=== PATIENT | female | born 1945 | race Asian ===

== ENCOUNTER 2018-05-09 16:58 | Observation (INO) | payer MEDICARE, OTHER ==
[2018-05-09] MEDS ORDERED: diphenhydrAMINE 50 MG/ML 1 ML VIAL IVP STA (17:33)
[2018-05-09] MEDS ORDERED: methylPREDNISolone SOD SUCCI 125 MG/2 ML VIAL IV STA (17:33)
[2018-05-09] MEDS ORDERED: FAMOTIDINE 20 MG/2 ML VIAL IV STA (17:33)
[2018-05-09] MEDS ORDERED: IPRATROPIUM-ALBUTEROL 3 ML NEB INHALATION STA ×3 (17:35→17:55)
--- NOTE | 2018-05-09 17:47 | ED ---
General Adult HPI - General Source: patient, RN notes reviewed Mode of arrival: ambulatory Limitations: no limitations <Rashawn Davey - Last Filed: 05/09/18 19:59> <Heber Jeong - Last Filed: 05/09/18 20:05> - General Chief complaint: Allergic Reaction Stated complaint: hives/SOB Time Seen by Provider: 05/09/18 17:20 - History of Present Illness Initial comments: 73-year-old female with a past medical history significant for orthopedic surgery presents to the emergency department for a chief complaint of possible ALLERGIC reaction. Patient states she has had a rash on her entire body for the past week. She states this is pruritic. Patient denies any fevers or chills. Patient is also short of breath. She states this started late last night and has worsened throughout the day today. Patient states she thinks this is related to the rash and may be having an ALLERGIC reaction. Patient does admit to a smoking history but states she quit 5 years ago. She denies history of COPD. She does admit that she is having a productive cough for the past several days. She denies any significant chest pain. Patient has no other complaints at this time including chest pain, abdominal pain, nausea or vomiting, headache, or visual changes. (Rashawn Davey) - Related Data Home Medications Medication Instructions Recorded Confirmed No Known Home Medications 05/09/18 05/09/18 Allergies Allergy/AdvReac Type Severity Reaction Status Date / Time No Known Allergies Allergy Verified 05/09/18 18:20 Review of Systems ROS Other: All systems not noted in ROS Statement are negative. <Rashawn Davey - Last Filed: 05/09/18 19:59> ROS Other: All systems not noted in ROS Statement are negative. <Heber Jeong - Last Filed: 05/09/18 20:05> ROS Statement: Those systems with pertinent positive or pertinent negative responses have been documented in the HPI. Past Medical History Past Medical History: No Reported History History of Any Multi-Drug Resistant Organisms: None Reported Past Surgical History: Orthopedic Surgery Past Psychological History: No Psychological Hx Reported Smoking Status: Never smoker Past Alcohol Use History: None Reported Past Drug Use History: None Reported <Rashawn Davey - Last Filed: 05/09/18 19:59> General Exam Limitations: no limitations General appearance: alert, in no apparent distress Head exam: Present: atraumatic, normocephalic, normal inspection Eye exam: Present: normal appearance, PERRL, EOMI. Absent: scleral icterus, conjunctival injection, periorbital swelling ENT exam: Present: normal exam, normal oropharynx, mucous membranes moist, TM's normal bilaterally, normal external ear exam Neck exam: Present: normal inspection, full ROM. Absent: tenderness, me ningismus, lymphadenopathy Respiratory exam: Present: wheezes (Significant wheezing noted in all lung álvarez), accessory muscle use (Patient has some some supraclavicular retractions noted). Absent: respiratory distress, rales, rhonchi, stridor Cardiovascular Exam: Present: regular rate, normal rhythm, normal heart sounds. Absent: systolic murmur, diastolic murmur, rubs, gallop, clicks GI/Abdominal exam: Present: soft, normal bowel sounds. Absent: distended, tenderness, guarding, rebound, rigid Neurological exam: Present: alert, oriented X3, CN II-XII intact Psychiatric exam: Present: normal affect, normal mood Skin exam: Present: rash (Patient has a generalized erythematous blanching rash noted with excoriations present) <Rashawn Davey - Last Filed: 05/09/18 19:59> Course <Heber Jeong - Last Filed: 05/09/18 20:05> Vital Signs 05/09/18 05/09/18 05/09/18 17:05 17:26 17:57 Temperature 99.3 F Pulse Rate 102 H 101 H Respiratory 16 24 Rate Blood Pressure 195/79 O2 Sat by Pulse 95 Oximetry 05/09/18 05/09/18 05/09/18 18:00 18:08 18:39 Temperature Pulse Rate 99 103 H Respiratory 32 H Rate Blood Pressure 200/105 188/117 O2 Sat by Pulse 99 Oximetry 05/09/18 05/09/18 19:00 19:15 Temperature Pulse Rate 92 92 Respiratory 30 H 30 H Rate Blood Pressure 174/100 184/96 O2 Sat by Pulse 96 96 Oximetry - Reevaluation(s) Reevaluation #1: 05/09/18 20:04 PA supervision: I proceeded [id number] evaluation the patient several occasions patient did present with complaints of a rash that was diffuse for about the last week family believes is secondary to a new couch that they have purchased. Patient came in with complaints of shortness of breath today she demonstrated diffuse wheezing and exertional dyspnea. After aggressive treatment patient still remained dyspneic with diffuse wheezing. Patient will be admitted. I did discuss case with Dr. Castillo. Patient will be admitted I do agree with the assessment and plan (Heber Jeong) EKG Findings - EKG Comments: EKG Findings:: Normal sinus rhythm, ventricular rate 98, TX interval 178, QRS duration 82, QTC 439, no evidence of ST elevation or depression <Rashawn Davey - Last Filed: 05/09/18 19:59> Medical Decision Making - Lab Data Result diagrams: 05/09/18 17:50 05/09/18 17:50 <Rashawn Davey - Last Filed: 05/09/18 19:59> - Lab Data Result diagrams: 05/09/18 17:50 05/09/18 17:50 <Heber Jeong - Last Filed: 05/09/18 20:05> - Medical Decision Making 73-year-old female presents for possible ALLERGIC reaction. Patient has had a rash for the past week and shortness of breath that developed last night. On presentation patient does have supraclavicular retractions noted as well is an erythematous macular rash. Patient given Solu-Medrol, Benadryl, Pepcid which did improve her rash however lung sounds are still very wheezy on exam. She also admits to a cough over the past several days. Patient given DuoNeb which did improve wheezing somewhat however respiratory rate still increased. CBC CMP unremarkable. Troponin negative. Chest x-ray does show evidence of pneumonitis. On reevaluation patient is still very wheezy. Given patient's smoking history as well as severity of SOB she will be admitted for further management. Patient will be given IV steroids and DuoNeb's. This case was discussed with Dr. Castillo.. (Rashawn Davey) - Lab Data Lab Results 05/09/18 05/09/18 05/09/18 Range/Units 17:50 17:50 17:50 WBC 6.7 (3.8-10.6) k/uL RBC 4.80 (3.80-5.40) m/uL Hgb 14.2 (11.4-16.0) gm/dL Hct 44.5 (34.0-46.0) % MCV 92.7 (80.0-100.0) fL MCH 29.5 (25.0-35.0) pg MCHC 31.9 (31.0-37.0) g/dL RDW 13.5 (11.5-15.5) % Plt Count 228 (150-450) k/uL Neutrophils % 70 % Lymphocytes % 13 % Monocytes % 11 % Eosinophils % 2 % Basophils % 1 % Neutrophils # 4.6 (1.3-7.7) k/uL Lymphocytes # 0.9 L (1.0-4.8) k/uL Monocytes # 0.7 (0-1.0) k/uL Eosinophils # 0.1 (0-0.7) k/uL Basophils # 0.0 (0-0.2) k/uL PT (9.0-12.0) sec INR (<1.2) APTT (22.0-30.0) sec Sodium 137 (137-145) mmol/L Potassium 4.4 (3.5-5.1) mmol/L Chloride 101 (98-107) mmol/L Carbon Dioxide 27 (22-30) mmol/L Anion Gap 9 mmol/L BUN 14 (7-17) mg/dL Creatinine 0.52 (0.52-1.04) mg/dL Est GFR (CKD-EPI)AfAm >90 (>60 ml/min/1.73 sqM) Est GFR (CKD-EPI)NonAf >90 (>60 ml/min/1.73 sqM) Glucose 125 H (74-99) mg/dL Plasma Lactic Acid Sergey (0.7-2.0) mmol/L Calcium 9.4 (8.4-10.2) mg/dL Magnesium 2.1 (1.6-2.3) mg/dL Total Bilirubin 0.6 (0.2-1.3) mg/dL AST 66 H (14-36) U/L ALT 83 H (9-52) U/L Alkaline Phosphatase 118 (38-126) U/L Troponin I (0.000-0.034) ng/mL NT-Pro-B Natriuret Pep 105 pg/mL Total Protein 7.2 (6.3-8.2) g/dL Albumin 4.2 (3.5-5.0) g/dL Influenza Type A RNA (Not Detectd) Influenza Type B (PCR) (Not Detectd) 05/09/18 05/09/18 05/09/18 Range/Units 17:50 17:50 17:50 WBC (3.8-10.6) k/uL RBC (3.80-5.40) m/uL Hgb (11.4-16.0) gm/dL Hct (34.0-46.0) % MCV (80.0-100.0) fL MCH (25.0-35.0) pg MCHC (31.0-37.0) g/dL RDW (11.5-15.5) % Plt Count (150-450) k/uL Neutrophils % % Lymphocytes % % Monocytes % % Eosinophils % % Basophils % % Neutrophils # (1.3-7.7) k/uL Lymphocytes # (1.0-4.8) k/uL Monocytes # (0-1.0) k/uL Eosinophils # (0-0.7) k/uL Basophils # (0-0.2) k/uL PT 9.3 (9.0-12.0) sec INR 0.8 (<1.2) APTT 25.2 (22.0-30.0) sec Sodium (137-145) mmol/L Potassium (3.5-5.1) mmol/L Chloride (98-107) mmol/L Carbon Dioxide (22-30) mmol/L Anion Gap mmol/L BUN (7-17) mg/dL Creatinine (0.52-1.04) mg/dL Est GFR (CKD-EPI)AfAm (>60 ml/min/1.73 sqM) Est GFR (CKD-EPI)NonAf (>60 ml/min/1.73 sqM) Glucose (74-99) mg/dL Plasma Lactic Acid Sergey 1.1 (0.7-2.0) mmol/L Calcium (8.4-10.2) mg/dL Magnesium (1.6-2.3) mg/dL Total Bilirubin (0.2-1.3) mg/dL AST (14-36) U/L ALT (9-52) U/L Alkaline Phosphatase (38-126) U/L Troponin I <0.012 (0.000-0.034) ng/mL NT-Pro-B Natriuret Pep pg/mL Total Protein (6.3-8.2) g/dL Albumin (3.5-5.0) g/dL Influenza Type A RNA (Not Detectd) Influenza Type B (PCR) (Not Detectd) 05/09/18 Range/Units 17:50 WBC (3.8-10.6) k/uL RBC (3.80-5.40) m/uL Hgb (11.4-16.0) gm/dL Hct (34.0-46.0) % MCV (80.0-100.0) fL MCH (25.0-35.0) pg MCHC (31.0-37.0) g/dL RDW (11.5-15.5) % Plt Count (150-450) k/uL Neutrophils % % Lymphocytes % % Monocytes % % Eosinophils % % Basophils % % Neutrophils # (1.3-7.7) k/uL Lymphocytes # (1.0-4.8) k/uL Monocytes # (0-1.0) k/uL Eosinophils # (0-0.7) k/uL Basophils # (0-0.2) k/uL PT (9.0-12.0) sec INR (<1.2) APTT (22.0-30.0) sec Sodium (137-145) mmol/L Potassium (3.5-5.1) mmol/L Chloride (98-107) mmol/L Carbon Dioxide (22-30) mmol/L Anion Gap mmol/L BUN (7-17) mg/dL Creatinine (0.52-1.04) mg/dL Est GFR (CKD-EPI)AfAm (>60 ml/min/1.73 sqM) Est GFR (CKD-EPI)NonAf (>60 ml/min/1.73 sqM) Glucose (74-99) mg/dL Plasma Lactic Acid Sergey (0.7-2.0) mmol/L Calcium (8.4-10.2) mg/dL Magnesium (1.6-2.3) mg/dL Total Bilirubin (0.2-1.3) mg/dL AST (14-36) U/L ALT (9-52) U/L Alkaline Phosphatase (38-126) U/L Troponin I (0.000-0.034) ng/mL NT-Pro-B Natriuret Pep pg/mL Total Protein (6.3-8.2) g/dL Albumin (3.5-5.0) g/dL Influenza Type A RNA Not Detected (Not Detectd) Influenza Type B (PCR) Not Detected (Not Detectd) Disposition Is patient prescribed a controlled substance at d/c from ED?: No Time of Disposition: 20:02 <Rashawn Davey - Last Filed: 05/09/18 19:59> <Heber Jeong - Last Filed: 05/09/18 20:05> Clinical Impression: Shortness of breath, Rash, Allergic reaction, Pneumonitis, Acute bronchospasm Disposition: ADMITTED IP TO THIS HOSP Condition: Fair Referrals: None,Stated [Primary Care Provider] - 1-2 days
[2018-05-09] MEDS ORDERED: ENALAPRILAT 1.25 MG/ML 1 ML VIAL IVP STA (18:10)
[2018-05-09 18:18] LABS: Basophils % (A) 1 %; Eosinophils # (A) 0.1 k/uL (0-0.7); Eosinophils % (A) 2 %; HCT 44.5 % (34.0-46.0); HGB 14.2 gm/dL (11.4-16.0); Lymphocytes # (A) 0.9 k/uL (1.0-4.8); Lymphocytes % (A) 13 %; MCH 29.5 pg (25.0-35.0); MCHC 31.9 g/dL (31.0-37.0); MCV 92.7 fL (80.0-100.0); Mean Platelet Volume 7.5; Monocytes # (A) 0.7 k/uL (0-1.0); Monocytes % (A) 11 %; Neutrophils # (A) 4.6 k/uL (1.3-7.7); Neutrophils % (A) 70 %; Platelet Count 228 k/uL (150-450); RDW 13.5 % (11.5-15.5); WBC 6.7 k/uL (3.8-10.6)
[2018-05-09 18:27] LABS: ALT 83 U/L (9-52); AST 66 U/L (14-36); Albumin 4.2 g/dL (3.5-5.0); Alkaline Phosphatase 118 U/L (38-126); Anion Gap 9 mmol/L; Blood Urea Nitrogen 14 mg/dL (7-17); Calcium 9.4 mg/dL (8.4-10.2); Carbon Dioxide 27 mmol/L (22-30); Chloride 101 mmol/L (98-107); Glucose 125 mg/dL (74-99); Magnesium 2.1 mg/dL (1.6-2.3); Potassium 4.4 mmol/L (3.5-5.1); Sodium 137 mmol/L (137-145); Total Bilirubin 0.6 mg/dL (0.2-1.3); Total Protein 7.2 g/dL (6.3-8.2)
[2018-05-09 18:35] LABS: INR 0.8 (<1.2); Partial Thromboplastin Time 25.2 sec (22.0-30.0); Prothrombin Time 9.3 sec (9.0-12.0)
--- NOTE | 2018-05-09 19:25 | XR ---
EXAMINATION: XR chest 2V DATE AND TIME: 05/09/2018 6:59 PM CLINICAL INDICATION: Pain. Dyspnea and eyes, possible allergic reaction TECHNIQUE: Departmental protocol COMPARISON: None FINDINGS: The lungs show multifocal ill-defined added opacities throughout the mid and lower lung zones, relati vely mild in degree but these opacities silhouette the pulmonary vasculature bilaterally. The pleural spaces are negative. The cardiac silhouette is moderately enlarged, and the thoracic aorta is tortuous. The skeletal structures and soft tissues are negative for acute findings. IMPRESSION: BILATERAL MULTIFOCAL PNEUMONITIS RADIOGRAPHIC PATTERN; FOLLOW-UP RADIOGRAPHY WILL FURTHER CHARACTERIZ E. MODERATE ENLARGEMENT OF THE CARDIAC SILHOUETTE.
[2018-05-09] MEDS ORDERED: traMADol 50 MG TAB PO PRN (19:55)
[2018-05-09] MEDS ORDERED: ONDANSETRON 4 MG/2 ML VIAL IVP PRN (19:55)
[2018-05-09] MEDS ORDERED: NALOXONE 0.4 MG/ML 1 ML VIAL IV PRN (19:55)
[2018-05-09] MEDS ORDERED: ACETAMINOPHEN TAB 325 MG TAB PO PRN (19:55)
[2018-05-09 21:58] VITALS: BMI 23.8
[2018-05-09] MEDS: SODIUM CHLORIDE 0.9% 1,000 ML IV SCH (22:17)
[2018-05-09] MEDS ORDERED: diphenhydrAMINE 50 MG/ML 1 ML VIAL IVP PRN (23:03)
--- NOTE | 2018-05-09 23:04 | P.HPIM ---
History of Present Illness H&P Date: 05/09/18 Chief Complaint: Rash and itchiness, cough and difficulty breathing 73-year-old female with a past medical history significant for orthopedic surgery presents to the emergency department for a chief complaint of possible ALLERGIC reaction. Patient states she has had a rash on her entire body for the past week, she reports it first began on her bilateral hands and forearm steadily progressing to her chest, She states it was initially very pruritic but has improved. Patient denies any fevers or chills. Patient is also short of breath. She states this started late last night and has worsened throughout the day today. She denies any throat swelling or feeling that her throat closing over, she denies any difficulty swallowing. Patient states she thinks this is related to the rash and may be having an ALLERGIC reaction. Patient does admit to a smoking history but states she quit 5 years ago. She denies history of COPD. She does admit that she is having a productive cough for the past several days. She denies any significant chest pain. Patient has no other complaints at this time including chest pain, abdominal pain, nausea or vomiting, headache, or visual changes. She denies any changes in her diet, detergent, perfumes or soaps. Review of Systems Pertinent positives per HPI all look versus and otherwise negative Past Medical History Past Medical History: No Reported History History of Any Multi-Drug Resistant Organisms: None Reported Past Surgical History: Orthopedic Surgery Past Psychological History: No Psychological Hx Reported Smoking Status: Never smoker Past Alcohol Use History: None Reported Past Drug Use History: None Reported - Past Family History Father Family Medical History: No Reported History Medications and Allergies Home Medications Medication Instructions Recorded Confirmed Type No Known Home Medications 05/09/18 05/09/18 History Allergies Allergy/AdvReac Type Severity Reaction Status Date / Time No Known Allergies Allergy Verified 05/09/18 18:20 Physical Exam Vitals: Vital Signs Temp Pulse Resp BP Pulse Ox 05/09/18 19:15 92 30 H 184/96 96 05/09/18 19:00 92 30 H 174/100 96 05/09/18 18:39 188/117 05/09/18 18:08 103 H 32 H 200/105 99 05/09/18 18:00 99 05/09/18 17:57 101 H 05/09/18 17:26 24 05/09/18 17:05 99.3 F 102 H 16 195/79 95 Intake and Output 05/09/18 05/09/18 05/09/18 06:59 14:59 22:59 Other: Weight 63.503 kg Constitutional: No acute distress, conversant, pleasant Eyes: Anicteric sclerae, moist conjunctiva, no lid-lag, PERRLA ENMT: NC/AT,Oropharynx clear, no erythema, exudates Neck:Supple, FROM, no masses, or JVD, No carotid bruits; No thyromegaly Lungs: Clear to auscultation, Clear to percussion, Normal respiratory effort, no accessory muscle use Cardiovascular: Heart regular in rate and rhythm, No murmurs, gallops, or rubs no peripheral edema Abdominal: Soft Nontender, nom distended, no guarding, no rebound or rigidity, Normoactive bowel sounds No hepatomegaly, No splenomegaly, No palpable mass No abdominal wall hernia noted Skin: Normal temperature, tone, texture, turgor, No induration No subcutaneous nodules, No rash, lesions, No ulcers Extremities:No digital cyanosis No clubbing, Pedal pulses intact and symmetrical Radial pulses intact and symmetrical Normal gait and station, No calf tenderness Psychiatric: Alert and oriented to person, place and time, Appropriate affect Intact judgement Neuro: Muscles Strength 5/5 in all 4 extremities, Sensation to light touch grossly present throughout, Cranial nerves II-XII grossly intact. No focal sensory deficits Results CBC & Chem 7: 05/09/18 17:50 05/09/18 17:50 Labs: Abnormal Lab Results - Last 24 Hours (Table) 05/09/18 05/09/18 Range/Units 17:50 17:50 Lymphocytes # 0.9 L (1.0-4.8) k/uL Glucose 125 H (74-99) mg/dL AST 66 H (14-36) U/L ALT 83 H (9-52) U/L Assessment and Plan (1) Acute bronchospasm Current Visit: Yes Status: Acute Code(s): J98.01 - ACUTE BRONCHOSPASM SNOMED Code(s): 13554006956010 (2) Allergic reaction Current Visit: Yes Status: Acute Code(s): T78.40XA - ALLERGY, UNSPECIFIED, INITIAL ENCOUNTER SNOMED Code(s): 304335716 (3) Pneumonitis Current Visit: Yes Status: Acute Code(s): J18.9 - PNEUMONIA, UNSPECIFIED ORGANISM SNOMED Code(s): 178157846 (4) Rash Current Visit: Yes Status: Acute Code(s): R21 - RASH AND OTHER NONSPECIFIC SKIN ERUPTION SNOMED Code(s): 636536625 (5) Shortness of breath Current Visit: Yes Status: Acute Code(s): R06.02 - SHORTNESS OF BREATH SNOMED Code(s): 304732532 (6) Elevated blood pressure reading Current Visit: Yes Status: Acute Code(s): R03.0 - ELEVATED BLOOD-PRESSURE READING, W/O DIAGNOSIS OF HTN SNOMED Code(s): 16731396 Plan: The patient is placed in observation anticipate a less than 2 midnight stay with a rash concern for ALLERGIC type hypersensitivity reaction to unknown precipitant with subsequent concern for ALLERGIC bronchospasm versus COPD exacerbation. The patient was started on systemic steroids With Solu-Medrol, along with Benadryl and Pepcid with supportive treatment DuoNeb bronchodilator breathing treatments. The patient is noted to have elevated blood pressures with no history of hypertension, appears anxious, we'll continue to monitor, currently not in respiratory distress but is tachypneic. We'll continue to [facility] clinical course CODE STATUS full code Discussed plan of care with : Patient and her
[2018-05-09] MEDS: LORazepam 0.5 MG TAB PO SCH (23:29)
[2018-05-09] MEDS: methylPREDNISolone SOD SUCCI 125 MG/2 ML VIAL IV SCH (23:29)
[2018-05-10] MEDS: IPRATROPIUM-ALBUTEROL 3 ML NEB INHALATION SCH ×4 (00:31→19:28)
[2018-05-10] MEDS: methylPREDNISolone SOD SUCCI 125 MG/2 ML VIAL IV SCH ×4 (05:35→23:33)
[2018-05-10] MEDS: FAMOTIDINE 20 MG/2 ML VIAL IV SCH ×2 (08:46→20:45)
[2018-05-10] MEDS: SODIUM CHLORIDE 0.9% 1,000 ML IV SCH ×2 (08:46→20:48)
--- NOTE | 2018-05-10 09:39 | P.CNPUL ---
History of Present Illness Consult date: 05/10/18 Reason for consult: dyspnea, cough Chief complaint: rash and shortness of breath History of present illness: This is a 73-year-old female who presented to the emergency department complaining of a rash and shortness of breath. She states this is been ongoing for about a week. The patient is currently denying any symptoms so the history is taken from the electronic medical record. Apparently the patient had a cough for the past several days. She has no history of asthma or COPD. She was complaining of a headache as well. She does not have any pets in her home. She states she is a former smoker but quit "a long time ago." She denies fevers and chills. She does not use any inhalers or nebulizers at home. She does not wear oxygen at home. Upon further questioning the patient does admit that she was short of breath at home with exertion. She does say that she just wants to go home today. On exam the patient is quite wheezy and this is discussed with her and her son. They are agreeable to further workup. Review of Systems All systems: negative Past Medical History Past Medical History: No Reported History History of Any Multi-Drug Resistant Organisms: None Reported Past Surgical History: Orthopedic Surgery Past Psychological History: No Psychological Hx Reported Smoking Status: Never smoker Past Alcohol Use History: None Reported Past Drug Use History: None Reported - Past Family History Father Family Medical History: No Reported History Medications and Allergies Home Medications Medication Instructions Recorded Confirmed Type No Known Home Medications 05/09/18 05/09/18 History Allergies Allergy/AdvReac Type Severity Reaction Status Date / Time No Known Allergies Allergy Verified 05/09/18 18:20 Physical Exam Osteopathic Statement: *. No significant issues noted on an osteopathic structural exam other than those noted in the History and Physical/Consult. Vitals: Vital Signs Temp Pulse Pulse Resp BP BP Pulse Ox 05/10/18 07:49 92 05/10/18 07:37 96 05/10/18 07:07 98 F 92 18 169/67 92 L 05/09/18 21:32 98.4 F 90 16 163/73 94 L 05/09/18 20:52 90 30 H 177/88 99 05/09/18 20:30 94 30 H 172/99 99 05/09/18 20:00 90 30 H 193/111 99 05/09/18 19:45 90 30 H 182/92 99 05/09/18 19:15 92 30 H 184/96 96 05/09/18 19:00 92 30 H 174/100 96 05/09/18 18:39 188/117 05/09/18 18:08 103 H 32 H 200/105 99 05/09/18 18:00 99 05/09/18 17:57 101 H 05/09/18 17:26 24 05/09/18 17:05 99.3 F 102 H 16 195/79 95 Intake and Output 05/09/18 05/10/18 05/10/18 22:59 06:59 14:59 Intake Total 75 Balance 75 Intake: Intake, IV Titration 75 Amount Sodium Chloride 0.9% 1, 75 000 ml @ 75 mls/hr IV . [id number] [facility] Rx#:[id number] Other: Voiding Method Toilet Toilet # Voids 1 2 Weight 63.503 kg Gen.: Patient is alert and oriented 3, no acute distress Cardiovascular: Regular rate and rhythm, S1/S2 Lungs: Diffuse bilateral expiratory wheezing Abdomen: Soft nontender nondistended positive bowel sounds Extremities: No edema Results - Laboratory Findings CBC and BMP: 05/09/18 17:50 05/09/18 17:50 PT/INR, D-dimer PT 9.3 sec (9.0-12.0) 05/09/18 17:50 INR 0.8 (<1.2) 05/09/18 17:50 Abnormal lab findings: Abnormal Labs 05/09/18 05/09/18 17:50 17:50 Lymphocytes # 0.9 L Glucose 125 H AST 66 H ALT 83 H - Diagnostic Findings Chest x-ray: report reviewed, image reviewed Assessment and Plan Assessment: Dyspnea on exertion Pneumonitis of unclear etiology Acute bronchospasm Remote history of tobacco abuse Hypertension Mild transaminitis of unclear etiology O2 to maintain saturation > or = 90% Pulmicort and Duonebs Solumedrol taper Singulair Monitor peak flows CT chest without contrast HP/IgE/allergy panel, PHYLLIS, [id number] Would discharge with Qvar, Ventolin, Singulair for now, Prednisone taper Outpatient PFT and pulmonary follow up Continued smoking cessation Patient denies exposures Thank you for this consultation. We will continue to follow along.
--- NOTE | 2018-05-10 10:44 | CT ---
EXAMINATION TYPE: CT chest wo con DATE OF EXAM: 05/10/2018 COMPARISON: None. HISTORY: Pneumonitis CT DLP: 148.6 mGycm. Automated Exposure Control for Dose Reduction was Utilized. TECHNIQUE: CT scan of the thorax is performed without IV contrast. FINDINGS: There is patchy groundglass opacity in both upper lobes as well as the left lingula. The ma nila bronchi are intact. There is no significant axillary, internal mammary or hilar adenopathy. There is some shotty mediasti nal adenopathy. The heart is enlarged. There is no pleural or pericardial fluid. The aorta is normal in caliber. Visualized portions of the upper abdomen are unremarkable. No bony lesion is seen. IMPRESSION: 1. PATCHY BILATERAL AIRSPACE DISEASE LIKELY REFLECTS PNEUMONIA. 2. MILD CARDIOMEGALY.
--- NOTE | 2018-05-10 13:17 | P.DS ---
Providers Date of admission: 05/09/18 20:03 Expected date of discharge: 05/10/18 Attending physician: Elias Castillo MD Consults: 05/09/18 19:55 Consult Physician Stat Consulting Provider: Cy Tyler Consult Reason/Comments: shortness of breath, pneumonitis, smoking history Do you want consulting provider notified?: Yes Primary care physician: Stated None Hospital Course: 73-year-old female with a past medical history significant for orthopedic surgery presents to the emergency department for a chief complaint of possible ALLERGIC reaction. Patient states she has had a rash on her entire body for the past week, she reports it first began on her bilateral hands and forearm steadily progressing to her chest, She states it was initially very pruritic but has improved. Patient denies any fevers or chills. Patient is also short of breath. She states this started late last night and has worsened throughout the day today. She denies any throat swelling or feeling that her throat closing over, she denies any difficulty swallowing. Patient states she thinks this is related to the rash and may be having an ALLERGIC reaction. Patient does admit to a smoking history but states she quit 5 years ago. She denies history of COPD. She does admit that she is having a productive cough for the past several days. She denies any significant chest pain. Patient has no other complaints at this time including chest pain, abdominal pain, nausea or vomiting, headache, or visual changes. She denies any changes in her diet, detergent, perfumes or soaps. Patient was evaluated by pulmonology who recommended CT of the chest, ALLERGY panel, PHYLLIS, SCL 70. CT of the chest was performed which showed patchy bilateral airspace disease likely reflects pneumonia. Patient was seen and examined. No acute events overnight. Appears very tearful, states that she is scared to be in the hospital. Her is at bedside, also tearful. Patient reports that her breathing has improved significantly since admission. She continues to complain of cough productive of sputum. She denies any chest pain, dizziness or palpitations. Patient is requesting to go home. General: [non toxic], [no distress], [appears at stated age] Derm: [warm], [urticaria rash over the chest] Head: [atraumatic], [normocephalic], [symmetric] Eyes: [EOMI], [no lid lag], [anicteric sclera] Mouth: [no lip lesion], [mucus membranes moist] Cardiovascular: [S1S2 reg], [no murmur], [positive posterior tibial pulse bilateral], Lungs: [Clear to auscultation bilateral with mild end expiratory wheezing], [no rhonchi, no rales] , [no accessory muscle use] Abdominal: [soft], [ nontender to palpation], [no guarding], [no appreciable organomegaly] Ext: [no gross muscle atrophy], [no edema], [no contractures] Neuro: [no focal neuro deficits] Psych: [Alert], [oriented], [appropriate affect] Assessment and Plan 1. Community acquired pneumonia causing bronchospasm 2. Rash 3. Transaminitis 1. Patient is afebrile with no leukocytosis. Chest x-ray shows bilateral multifocal pneumonitis. This is confirmed on CT of the chest. Pulmonology consulted, recommends ALLERGY workup, PHYLLIS, SCL 70. 6 minute walk test performed by nurse, patient maintaining greater than 90% saturation. Patient will be discharged on Qvar, Ventolin, Singulair and prednisone taper. Advised to follow-up with PCP within 1-2 days. Advised to follow-up with pulmonology within 1 week for further workup. 2. Unknown etiology. Initially started on the hands and worked up to the upper chest. Likely part of ALLERGIC reaction. We'll need to follow-up with PCP for further workup. 3. AST 66, ALTs 83. Total bilirubin and alkaline phosphatase is within normal limits. Unknown etiology. Patient to be worked up in the outpatient setting. Patient and both tearful, requesting discharge. CT chest showing pneumonia. Will prescribe 3 day course of azithromycin along with prednisone taper. Advised to use Qvar, Ventolin and Singulair. Need adequate follow-up with PCP within 1-2 days and pulmonology within 1 week for further workup. Patient and both verbalized understanding of the plan. Pertinent Studies: Chest x-ray, chest CT Patient Condition at Discharge: Fair Plan - Discharge Summary Discharge Rx Participant: Yes New Discharge Prescriptions: New predniSONE 50 mg PO DAILY #4 tab Beclomethasone Dip 80 Mcg/Puff [Qvar] 1 puff INHALATION BID #1 inhaler Montelukast Sodium [Singulair] 10 mg PO HS #30 tab Albuterol Inhaler [Ventolin Hfa Inhaler] 1 - 2 puff INHALATION RT-Q6H PRN #1 inhaler PRN Reason: Shortness Of Breath Or Wheezing Azithromycin [Zithromax Tri-Donovan] 500 mg PO DAILY 3 Days #3 tab Discharge Medication List Albuterol Inhaler [Ventolin Hfa Inhaler] 1 - 2 puff INHALATION RT-Q6H PRN #1 inhaler 05/10/18 [Rx] Azithromycin [Zithromax Tri-Donovan] 500 mg PO DAILY 3 Days #3 tab 05/10/18 [Rx] Beclomethasone Dip 80 Mcg/Puff [Qvar] 1 puff INHALATION BID #1 inhaler 05/10/18 [Rx] Montelukast Sodium [Singulair] 10 mg PO HS #30 tab 05/10/18 [Rx] predniSONE 50 mg PO DAILY #4 tab 05/10/18 [Rx] Follow up Appointment(s)/Referral(s): None,Stated [Primary Care Provider] - 1-2 days Alexus Arriola DO [Doctor of Osteopathic Medicine] - 1 Week Activity/Diet/Wound Care/Special Instructions: Diet: Regular Follow-up with PCP within 1-2 days of discharge. Follow-up with pulmonology within 1 week of discharge. Take all medications as advised. Come back to the ED for worsening symptoms. Discharge Disposition: HOME SELF-CARE
[2018-05-10 18:17] LABS: Scleroderma SC-70 Ab <0.2 AI
[2018-05-10] MEDS ORDERED: AZITHROMYCIN 500 MG TAB PO STA (18:33)
[2018-05-10] MEDS: LORazepam 0.5 MG TAB PO SCH (20:44)
[2018-05-10] MEDS: BENZONATATE 100 MG CAP PO PRN (20:44)
[2018-05-11] MEDS: IPRATROPIUM-ALBUTEROL 3 ML NEB INHALATION SCH ×2 (01:35→08:47)
[2018-05-11] MEDS: BENZONATATE 100 MG CAP PO PRN (05:25)
[2018-05-11] MEDS: methylPREDNISolone SOD SUCCI 125 MG/2 ML VIAL IV SCH ×2 (05:25→13:14)
[2018-05-11 05:42] VITALS: BP 176/82; RESP 17; TEMP 97.4
[2018-05-11] MEDS: FAMOTIDINE 20 MG/2 ML VIAL IV SCH (09:25)
[2018-05-11 09:29] VITALS: PULSE 100
--- NOTE | 2018-05-11 12:20 | P.DS ---
Providers Date of admission: 05/09/18 20:03 Expected date of discharge: 05/11/18 Attending physician: Elias Castillo MD Consults: 05/09/18 19:55 Consult Physician Stat Consulting Provider: Cy Tyler Consult Reason/Comments: shortness of breath, pneumonitis, smoking history Do you want consulting provider notified?: Yes Primary care physician: Stated None Hospital Course: Discharge Diagnosis: Pneumonitis of unclear etiology with acute bronchospasm Dermatitis, likely ALLERGIC in origin Mild transaminitis Accelerated hypertension, improving throughout hospitalization Remote history of tobacco abuse Hospital Course: Is a 73-year-old female with past medical history of prior tobacco abuse who presented to the ER with complaints of rash involving her entire body. In the ER she underwent an extensive evaluation. On arrival her blood pressure was elevated at 195/79 and pulse is elevated at 102. Initial laboratory analysis showed slightly elevated AST and ALP of 66 and 83 respectively. She underwent a chest x-ray which showed bilateral multifocal pneumonitis. She was started on steroids, bronchodilators, and was placed in observation for further monitoring. She was seen by pulmonary who felt that she had a nonspecific pneumonitis. They recommended inhaled heroin use as well as oral steroids and as needed bronchodilators. She underwent a CT chest which showed patchy bilateral airspace disease likely reflecting pneumonia. She was maintained on Zithromax therapy. Her wheezing improved significantly. Her anti-scleral antibody, PHYLLIS, and IgE all came back negative. She was determined stable for discharge. She does not have a PCP and she'll be giving Dr. Dubose's information to establish care. She also follows Dr. Rubin in the office for pulmonary. She was determined stable for discharge. Her has COPD and is familiar on inhaler use. We did not start her on blood pressure medications on discharge as blood pressure was improving throughout her stay and will likely normalize as her allergic reaction improves. Patient seen and examined at bedside. Breathing much better, rash improving, no chest pain. Feeling well and wanting to go home. No other complaints currently. at bedside and all questions answered. Vital signs reviewed and stable. General: non toxic, no distress, appears at stated age Derm: small erythematous macules with some crust, warm, dry Head: atraumatic, normocephalic, symmetric Eyes: EOMI, no lid lag, anicteric sclera Mouth: no lip lesion, mucus membranes moist Cardiovascular: S1S2 reg, no murmur, positive posterior tibial pulse bilateral, Lungs: Rhonchi bilateral, no accessory muscle use Abdominal: soft, nontender to palpation, no guarding, no appreciable organomegaly Ext: no gross muscle atrophy, no edema, no contractures Neuro: CN II-XI grossly intact, no focal neuro deficits Psych: Alert, oriented, appropriate affect A total of 35 minutes of time were spent preparing this complex discharge summary . Pertinent Studies: CT chest -bilateral interstitial infiltrates Patient Condition at Discharge: Stable Plan - Discharge Summary Discharge Rx Participant: Yes New Discharge Prescriptions: New predniSONE 50 mg PO DAILY #4 tab Beclomethasone Dip 80 Mcg/Puff [Qvar] 1 puff INHALATION BID #1 inhaler Montelukast Sodium [Singulair] 10 mg PO HS #30 tab Albuterol Inhaler [Ventolin Hfa Inhaler] 1 - 2 puff INHALATION RT-Q6H PRN #1 inhaler PRN Reason: Shortness Of Breath Or Wheezing Azithromycin [Zithromax Tri-Donovan] 500 mg PO DAILY 3 Days #3 tab Discharge Medication List Albuterol Inhaler [Ventolin Hfa Inhaler] 1 - 2 puff INHALATION RT-Q6H PRN #1 inhaler 05/10/18 [Rx] Azithromycin [Zithromax Tri-Donovan] 500 mg PO DAILY 3 Days #3 tab 05/10/18 [Rx] Beclomethasone Dip 80 Mcg/Puff [Qvar] 1 puff INHALATION BID #1 inhaler 05/10/18 [Rx] Montelukast Sodium [Singulair] 10 mg PO HS #30 tab 05/10/18 [Rx] predniSONE 50 mg PO DAILY #4 tab 05/10/18 [Rx] Follow up Appointment(s)/Referral(s): Alexus Arriola DO [Doctor of Osteopathic Medicine] - 1 Week (Patient to call Dr. Arriola's office Saturday to schedule follow up appointment. The office is closed at time of discharge. ) None,Stated [Primary Care Provider] - 1-2 days Patient Instructions/Handouts: Albuterol (By breathing), Beclomethasone (By breathing), Prednisone (By mouth), Azithromycin (By mouth), Montelukast (By mouth), Pneumonitis (DC), Acute Rash (DC), Shortness of Breath (DC) Activity/Diet/Wound Care/Special Instructions: Diet: Regular Follow-up with PCP within 1-2 days of discharge. Follow-up with pulmonology within 1 week of discharge. Take all medications as advised. Come back to the ED for worsening symptoms. Discharge Disposition: HOME SELF-CARE
[2018-05-11] MEDS: SODIUM CHLORIDE 0.9% 1,000 ML IV SCH (13:13)
[2018-05-11] MEDS ORDERED: diphenhydrAMINE 25 MG CAP PO PRN (13:40)
[2018-05-11] MEDS ORDERED: CLOTRIMAZOLE TROCHE 10 MG TROCHE MUCOUS MEM SCH (16:00)
[2018-05-11] MEDS ORDERED: FAMOTIDINE 20 MG TAB PO SCH (21:00)
[2018-05-13 14:43] LABS: Alt. alternata IgE Class CLASS 0; Alternaria alternata IgE <0.35 kU/L (<0.35); Asperg. fumagatus IgE <0.35 kU/L (<0.35); Asperg. fumagatus IgE Class CLASS 0; Bermuda Grass IgE <0.35 kU/L (<0.35); Birch(Com.Silvr) IgE <0.35 kU/L (<0.35); Birch(Com.Silvr) IgE Class CLASS 0; Cat Epith & Dander IgE <0.35 kU/L (<0.35); Cat Epith & Dander IgE Class CLASS 0; Clad herbarum IgE <0.35 kU/L (<0.35); Cockroach IgE <0.35 kU/L (<0.35); Cottonwood IgE <0.35 kU/L (<0.35); Dermato. Pteronyssinus IgE <0.35 kU/L (<0.35); Dermato. farinae IgE <0.35 kU/L (<0.35); Dermato. farinae IgE Class CLASS 0; Dog Dander IgE <0.35 kU/L (<0.35); Elm IgE <0.35 kU/L (<0.35); Maple (Box Elder) IgE <0.35 kU/L (<0.35); Maple (Box Elder) IgE Class CLASS 0; Mountain Cedar IgE <0.35 kU/L (<0.35); Mountain Cedar IgE Class CLASS 0; Mouse Urine IgE Class CLASS 0; Nettle IgE <0.35 kU/L (<0.35); Nettle IgE Class CLASS 0; Oak IgE <0.35 kU/L (<0.35); Penicillium notatum IgE Class CLASS 0; Rough Marshelder IgE <0.35 kU/L (<0.35); Rough Marshelder IgE Class CLASS 0; Timothy Grass IgE 0.89 kU/L (<0.35); White Ash IgE Class CLASS 0
== END 2018-05-11 14:50 | disposition home or self-care (01) ==
LOC: EC 16:58 → 3NMEDONC 20:03
PROVIDERS: ADMIT Family Medicine; ATTEND Family Medicine
DX: J18.9 Pneumonia, unspecified organism (principal); L30.9 Dermatitis, unspecified; J98.01 Acute bronchospasm; I11.9 Hypertensive heart disease without heart failure; R51 Headache; R74.0 Nonspecific elevation of levels of transaminase and lactic acid dehydrogenase [LDH]; Z87.891 Personal history of nicotine dependence
CPT/HCPCS: 96376 ×3; 96361 ×3; 96374; 96375; 99285; 36415; 94640 ×5; 93005; 86003; 83880; 80053; 86001; 83605; 83735; 84484; 85025; 85610; 85730; 87040; 86609; 86606; 82785; 86038; 86235; 87502; 71046; 71250; G0378 ×3; J1200; J2930 ×3

== ENCOUNTER 2021-09-03 15:17 | Emergency (ER) | payer MEDICARE, OTHER ==
--- NOTE | 2021-09-03 16:46 | XR ---
EXAMINATION TYPE: XR facial bones complete DATE OF EXAM: 09/03/2021 COMPARISON: NONE HISTORY: Pain TECHNIQUE: 3 views FINDINGS: There is a fluid level right maxillary sinus. Orbital margins are intact. Maxilla appears i ntact. Mandible appears intact. There is some mild increased density at the roof of the right maxilla ry sinus that raises the possibility of a blowout fracture. Zygoma appear intact. IMPRESSION: Fluid level in the right maxillary sinus and possible blowout fracture of the right orbit . No fracture line seen.
--- NOTE | 2021-09-03 16:47 | XR ---
EXAMINATION TYPE: XR chest 2V DATE OF EXAM: 09/03/2021 COMPARISON: 05/09/2018 HISTORY: Fall. Chest pain TECHNIQUE: 2 views FINDINGS: Heart is enlarged. There is no heart failure. There is some coarsening of the lung markings . No pleural effusion. There are no hilar masses. Bony thorax is intact. No compression fracture. IMPRESSION: Mild cardiomegaly. No pulmonary consolidation or heart failure. There is improvement in t he pulmonary interstitial density compared to old exam.
--- NOTE | 2021-09-03 17:21 | ED ---
General Adult HPI - General Chief complaint: Fall Stated complaint: Fall Time Seen by Provider: 09/03/21 16:52 Source: patient, family, RN notes reviewed, old records reviewed Mode of arrival: ambulatory Limitations: no limitations - History of Present Illness Initial comments: Patient is a 76-year-old female with past medical history remarkable for no significant past medical history presents emergency Department complaining of a mechanical fall. Was at home this morning and was walking the dog reportedly 5 AM. Tripped and fell forward. She states she had some right-sided rib pain as well as a cheek pain. Was doing fine but her wanted her to come to the emergency department for evaluation. She was initially seen in triage by triage nursing and baseline x-rays were obtained. Chest x-ray shows no acute cardio pulmonary process. No obvious injury. Face x-ray shows possible right orbit fracture, however it is difficult to see on x-ray. When I evaluated the patient in the waiting room, she has no acute complaints. Endorses mild pain and refuses analgesic medications. Is not on blood thinners. No loss of consciousness. No other pain or injuries from the fall. Presents for further evaluation of this time. Denies change in vision or blurry vision. Denies difficulty or pain with moving her right eye. - Related Data Previous Rx's Medication Instructions Recorded Albuterol Inhaler [Ventolin Hfa 1 - 2 puff INHALATION RT-Q6H PRN 05/10/18 Inhaler] #1 inhaler Azithromycin [Zithromax Tri-Donovan (3 500 mg PO DAILY 3 Days #3 tab 05/10/18 tabs)] Beclomethasone Dip 80 Mcg/Puff 1 puff INHALATION BID #1 inhaler 05/10/18 [Qvar] Montelukast Sodium [Singulair] 10 mg PO HS #30 tab 05/10/18 predniSONE 50 mg PO DAILY #4 tab 05/10/18 Amoxic-Pot Clav 875-125Mg 1 tab PO Q12HR 10 Days #20 tab 09/03/21 [Augmentin 875-125] Loratadine [Claritin] 10 mg PO DAILY 10 Days #10 tab 09/03/21 Allergies Allergy/AdvReac Type Severity Reaction Status Date / Time No Known Allergies Allergy Verified 09/03/21 15:54 Review of Systems ROS Statement: Those systems with pertinent positive or pertinent negative responses have been documented in the HPI. Review of Systems: CONST: Denies fever EYES: Denies blurry vision ENT: Denies nasal congestion C/V: Denies Chest pain RESP: Denies shortness of breath GI: Denies abdominal pain : Denies dysuria SKIN: Denies rash. MSK: Denies joint pain. NEURO: Denies headache ROS Other: All systems not noted in ROS Statement are negative. Past Medical History Past Medical History: No Reported History History of Any Multi-Drug Resistant Organisms: None Reported Past Surgical History: Orthopedic Surgery Additional Past Surgical History / Comment(s): left arm Past Psychological History: No Psychological Hx Reported Past Alcohol Use History: None Reported Past Drug Use History: None Reported - Past Family History Father Family Medical History: No Reported History General Exam - General Exam Comments Initial Comments: General: Appears in no acute distress. HEAD: Normal with no signs of head trauma. EYES: PERRLA, EOMI, conjunctiva normal, no discharge. Peripheral vision within normal limits. Pupils are 3 mm equal bilaterally. No signs of orbital muscle entrapment. EOMI and wnl. Visual acuity wnl. ENT: Hearing grossly intact, normal oropharynx. Mild bruising beneath the right eye with no obvious step-offs or deformities of the facial bones. Negative raccoon eyes. RESPIRATORY: Clear breath sounds bilaterally. No wheezes, rales, or rhonchi. C/V: Regular and rhythm. Peripheral pulses 2+ and intact throughout. S1 and S2 auscultated. ABD: Abdomen is nondistended. EXT: No obvious deformities. Tenderness to palpation over the right ribs, inferior ribs in the anterior axillary line on the right. No obvious deformities. Very mild tenderness. SKIN: Bruising under Right eye. NEURO: Alert and oriented x 4. Cranial nerves II-XII intact. No focal sensory or strength deficits. GCS of 15. Limitations: no limitations Course Vital Signs 09/03/21 15:46 Temperature 98.2 F Pulse Rate 89 Respiratory 18 Rate Blood Pressure 152/83 O2 Sat by Pulse 95 Oximetry Medical Decision Making - Medical Decision Making Abdomen the patient's presentation and physical exam, I'm concerned for possible facial bone injury based on x-ray which is inconclusive. Recommend we obtain CT imaging which she agreed with. Diffuse analgesic medications at this time. Has no other injuries. I updated them on the results of the chest x-ray as well as the facial bone x-ray. They expressed understanding. They were in agreement this plan. Vital signs are within normal limits. She is in no obvious distress at this time.Patient was evaluated in the waiting room. CT imaging revealed a orbital floor fracture on the right as well as a nondisplaced fracture of the lateral wall of the right maxillary sinus with a small amount of air-fluid level present which is likely blood. As stated in the exam, patient is no signs of ocular muscle entrapment. I did the patient's on the results. I spoke with the ENT on-call, Dr. Chanel who believes it is safe the patient to be discharged home with strict nasal precautions and prophylactic antibiotics. Patient was instructed not to blow her nose. She'll be started on decongestants as well as an antibiotic. Patient will follow-up with Dr. Chanel this week in the office. I'll provide contact information. The patient was in agreement this plan. She'll receive a dose of Augmentin prior to discharge. I will provide the patient with a prescription for Augmentin, Claritin. I instructed the patient to follow up with their PCP in the next 1-3 days. I provided contact information for follow up with Dr. Chanel to follow up this week. I explained that the patient should return to the emergency department if they experience any worsening symptoms. Strict return precautions were discussed with the patient. The patient expressed understanding of these instructions. I answered all questions that the patient had. The patient was discharged home in fair condition with their prescriptions and follow up information. Disposition Clinical Impression: Orbital floor fracture, Maxillary sinus fracture, Fall Disposition: HOME SELF-CARE Condition: Fair Instructions (If sedation given, give patient instructions): Facial Fracture ( ED), Fall Prevention (ED) Additional Instructions: You have an orbital floor fracture and maxillary sinus fracture on the right side from your fall. DO NOT BLOW YOUR NOSE. Use over the counter nasal decongestants as needed. Take your antibiotic as prescribed. Call Dr. Chanel on Saturday09/04/21 or Saturday09/05/21 to set up a follow up appointment for evaluation this week. Prescriptions: Amoxic-Pot Clav 875-125Mg [Augmentin 875-125] 1 tab PO Q12HR 10 Days #20 tab Loratadine [Claritin] 10 mg PO DAILY 10 Days #10 tab Is patient prescribed a controlled substance at d/c from ED?: No Referrals: None,Stated [Primary Care Provider] - 1-2 days Aleksandr Chanel MD [STAFF PHYSICIAN] - 1-2 days Time of Disposition: 18:20
--- NOTE | 2021-09-03 17:40 | CT ---
EXAMINATION TYPE: CT facial bones wo con DATE OF EXAM: 09/03/2021 COMPARISON: None HISTORY: fall, right facial bruising CT DLP: 1132.4 mGycm Automated exposure control for dose reduction was used. Images obtained from the bottom of the maxilla to the top of the frontal sinuses with no contrast. There is fluid level right maxillary sinus. There is depression of the floor of the right bony orbit 4 mm. There is small amount of intraorbital air bubbles at the inferior posterior aspect of the right orbit. There is also slight depression for the left bony orbit could relate to an old fracture. The orbital margins are otherwise intact. Nasal bone is intact. There is irregular contour of the lateral wall right maxillary sinus. There is nondisplaced fracture. Zygomatic arches appear normal. IMPRESSION: There is a blowout fracture of the floor of the right bony orbit with mild depression of the floor. T here is minimal intraorbital air. There is fluid level in the right maxillary sinus consistent with h emorrhage. There is nondisplaced fracture lateral wall of the right maxillary sinus. There is probabl y an old blowout fracture left bony orbit.
--- NOTE | 2021-09-03 17:42 | CT ---
EXAMINATION TYPE: CT brain wo con DATE OF EXAM: 09/03/2021 COMPARISON: None HISTORY: fall, right facial bruising CT DLP: 1132.4 mGycm Automated exposure control for dose reduction was used. Images of the brain obtained with no contrast. There is mild cerebral atrophy. There is no mass effect or midline shift. No sign of intracranial hem orrhage. Calvarium is intact. IMPRESSION: Mild cerebral atrophy. No acute intracranial abnormality.
[2021-09-03] MEDS ORDERED: AMOXIC-POT CLAV 875-125MG 1 EACH TAB PO STA (18:20)
[2021-09-03 19:03] VITALS: BP 146/78; PULSE 82; RESP 16; TEMP 97.8
== END 2021-09-03 18:46 | disposition home or self-care (01) ==
LOC: EC 15:17
DX: S02.40CA Maxillary fracture, right side, initial encounter for closed fracture (principal); S02.31XA Fracture of orbital floor, right side, initial encounter for closed fracture; W01.0XXA Fall on same level from slipping, tripping and stumbling without subsequent striking against object, initial encounter; Y93.K1 Activity, walking an animal
CPT/HCPCS: 70150; 70450; 70486; 71046; 99284

== ENCOUNTER 2021-12-23 14:53 | Emergency (ER) | payer MEDICARE, OTHER ==
[2021-12-23] MEDS ORDERED: ASPIRIN 81 MG PO STA (15:43)
--- NOTE | 2021-12-23 15:47 | ED ---
Chest Pain HPI - General Chief Complaint: Chest Pain Stated Complaint: AMS Time Seen by Provider: 12/23/21 15:26 Source: patient, RN notes reviewed Mode of arrival: ambulatory Limitations: no limitations - History of Present Illness Initial Comments: 76-year-old female history of asthma former smoker history of hypertension per old records that were reviewed who presents with complaints today of shortness of breath some shaking also chills on and off for the past week. She points to her lower midsternal area but denies sharp dull achy crampy type pain just pain. She denies any fevers or sweats cough or phlegm production no other complaints or modifying factors. MD Complaint: chest pain, other - Related Data Home Medications Medication Instructions Recorded Confirmed Chlorpheniramine/Dextromethorp 1 tab PO HS PRN 12/23/21 12/23/21 [Coricidin Hbp Cough & Cold Tab] Previous Rx's Medication Instructions Recorded Montelukast Sodium [Singulair] 10 mg PO HS #30 tab 05/10/18 Allergies Allergy/AdvReac Type Severity Reaction Status Date / Time No Known Allergies Allergy Verified 12/23/21 18:41 Review of Systems ROS Statement: Those systems with pertinent positive or pertinent negative responses have been documented in the HPI. ROS Other: All systems not noted in ROS Statement are negative. EKG Findings - EKG Results: EKG: interpreted by [place] (Evidence of tachycardia apparent atrial flutter rate 140 QRS duration 86 QT since QTC 3:30 and/421 for lateral right axis deviation moderate ST depression seen in the inferior and the leads V4 V5 and V6. This is not seen on previous EKG dated 05/09/18) Past Medical History Past Medical History: Asthma History of Any Multi-Drug Resistant Organisms: None Reported Past Surgical History: Orthopedic Surgery Additional Past Surgical History / Comment(s): left arm Past Psychological History: No Psychological Hx Reported Smoking Status: Former smoker Past Alcohol Use History: None Reported Past Drug Use History: None Reported - Past Family History Father Family Medical History: No Reported History General Exam - General Exam Comments Initial Comments: This a well-developed well-nourished awake alert oriented 4 female Limitations: no limitations General appearance: alert, anxious Head exam: Present: atraumatic, normocephalic, normal inspection Eye exam: Present: normal appearance, PERRL, EOMI. Absent: scleral icterus, conjunctival injection, periorbital swelling ENT exam: Present: normal exam, mucous membranes moist Neck exam: Present: normal inspection, full ROM, other (Stridor JVD or bruits). Absent: tenderness, meningismus, lymphadenopathy Respiratory exam: Present: normal lung sounds bilaterally. Absent: respiratory distress, wheezes, rales, rhonchi, stridor Cardiovascular Exam: Present: tachycardia. Absent: systolic murmur, diastolic murmur, rubs, gallop, clicks GI/Abdominal exam: Present: soft, normal bowel sounds. Absent: distended, tenderness, guarding, rebound, rigid, bruit, pulsatile mass Extremities exam: Present: normal inspection, full ROM, normal capillary refill. Absent: tenderness, pedal edema, joint swelling, calf tenderness Back exam: Present: normal inspection Neurological exam: Present: alert, oriented X3, CN II-XII intact Psychiatric exam: Present: normal affect, normal mood Skin exam: Present: warm, dry, intact, normal color. Absent: rash Course Vital Signs 12/23/21 12/23/21 12/23/21 15:13 15:53 19:23 Temperature 98.9 F 100.1 F H 98.7 F Pulse Rate 144 H 105 H Respiratory 18 17 Rate Blood Pressure 110/62 109/61 O2 Sat by Pulse 93 L 97 Oximetry 12/23/21 21:59 Temperature 98.4 F Pulse Rate 108 H Respiratory 20 Rate Blood Pressure 113/56 O2 Sat by Pulse 99 Oximetry Chest Pain MDM - [facility] 36-year-old female with a history of asthma and former smoker who presented with complaints of bilateral off chills and shakes or last week also today developed shortness of breath and lower chest pain. She had a temperature 100.1 degrees on arrival with a. Atrial flutter with RVR rate of about 140. She had tenderness palpation of the sternum she does have a prior remote sternal fracture. No nausea no vomiting she decreased oral intake recently. Workup included IV labs x-rays and CAT scan. Imaging showed evidence of no pulmonary embolus she did have elevated d-dimer. She did eventually also get an ultrasound showed evidence of choledocholithiasis with a 12 mm common bile duct. Lab work showed evidence of elevated troponin the elevated d-dimer as mentioned she has elevated liver enzymes with elevated bilirubin. Also a elevated lipase indicative of acute pancreatitis. The patient initially was adamant about not being admitted to the hospital we had a very long and [place] discussion between the patient and her family. She finally agreed to be admitted. I did discuss case with Dr. Redman who accepted the patient didn't know GI coverage in this facility I did discuss the case with Dr. Daniels at [facility] emergency department was agreed to set the patient transfer this was okayed by the patient and family. Patient be transferred by EMS for further evaluation and treatment. Patient was given IV antibiotics IV fluids he did have improvement in her temperature and heart rate. Disposition Clinical Impression: Atypical chest pain, Tachycardia, Choledocholithiasis with acute cholecystitis with obstruction, Elevated troponin, Acute pancreatitis Disposition: OTHER INSTITUTION NOT DEFINED Condition: Serious Referrals: None,Stated [Primary Care Provider] - 1-2 days Decision Date: 12/23/21 Decision Time: 22:11 - Out of Hospital Transfer - Req. Specs Out of Hospital Transfer - Requested Specifics: Other Emergency Center
[2021-12-23] MEDS ORDERED: SODIUM CHLORIDE 0.9% 500 ML 500 ML IV STA (15:50)
[2021-12-23] MEDS ORDERED: SODIUM CHLORIDE 0.9% 1,000 ML IV STA ×2 (15:50→15:53)
[2021-12-23] MEDS ORDERED: ACETAMINOPHEN TAB 325 MG TAB PO STA (15:53)
[2021-12-23 16:18] LABS: Basophils % (A) 0 %; Eosinophils # (A) 0.1 k/uL (0-0.7); Eosinophils % (A) 1 %; HGB 11.9 gm/dL (11.4-16.0); Lymphocytes # (A) 0.5 k/uL (1.0-4.8); Lymphocytes % (A) 3 %; MCH 29.1 pg (25.0-35.0); MCHC 32.2 g/dL (31.0-37.0); MCV 90.3 fL (80.0-100.0); Mean Platelet Volume 8.8; Monocytes # (A) 0.4 k/uL (0-1.0); Monocytes % (A) 3 %; Neutrophils # (A) 13.9 k/uL (1.3-7.7); Neutrophils % (A) 93 %; Platelet Count 264 k/uL (150-450); RBC 4.09 m/uL (3.80-5.40); RDW 13.5 % (11.5-15.5); WBC 14.9 k/uL (3.8-10.6)
[2021-12-23 16:32] LABS: Partial Thromboplastin Time 23.3 sec (22.0-30.0); Prothrombin Time 10.9 sec (9.0-12.0)
[2021-12-23 16:50] LABS: ALT 118 U/L (4-34); AST 182 U/L (14-36); African American GFR (CKD) >90 (>60 ml/min/1.73 sqM); Albumin 3.5 g/dL (3.5-5.0); Alkaline Phosphatase 615 U/L (38-126); Anion Gap 12 mmol/L; Blood Urea Nitrogen 13 mg/dL (7-17); Calcium 8.3 mg/dL (8.4-10.2); Carbon Dioxide 22 mmol/L (22-30); Chloride 99 mmol/L (98-107); Glucose 142 mg/dL (74-99); Magnesium 1.6 mg/dL (1.6-2.3); Non-African American GFR(CKD) >90 (>60 ml/min/1.73 sqM); Potassium 3.4 mmol/L (3.5-5.1); Sodium 133 mmol/L (137-145); Total Bilirubin 2.2 mg/dL (0.2-1.3); Total Protein 6.3 g/dL (6.3-8.2)
--- NOTE | 2021-12-23 16:50 | XR ---
EXAMINATION TYPE: XR chest 2V DATE OF EXAM: 12/23/2021 COMPARISON: 05/09/2018 HISTORY: Chest pain TECHNIQUE: Frontal and lateral views of the chest are obtained. FINDINGS: The heart is moderately enlarged. The pulmonary vasculature is not congested. The lungs are clear of airspace or interstitial opacity. There is no pleural effusion or pneumothorax. The osseous structures are intact with the exception of postsurgical changes within the left humerus for fracture fixation. IMPRESSION: Moderate cardiomegaly without overt CHF. No acute cardiopulmonary disease.
[2021-12-23 16:58] LABS: Lipase 2664 U/L (23-300)
--- NOTE | 2021-12-23 19:27 | CT ---
EXAMINATION TYPE: CT angio chest CT DLP: 260.5 mGycm, Automated exposure control for dose reduction was used. DATE OF EXAM: 12/23/2021 7:13 PM COMPARISON: Chest radiograph from same day. CT chest 05/10/2018, chest x-ray 09/03/2021. CLINICAL INDICATION:Female, 76 years old with history of PE suspected; shakey and chest pain TECHNIQUE/CONTRAST: CTA scan of the thorax is performed with IV Contrast, patient injected with 66 mL of Isovue 370, pulm onary embolism protocol. MIP images are created and reviewed. FINDINGS: Pulmonary Artery: There is no evidence for a filling defect within the pulmonary vasculature to sugge st acute pulmonary embolism. The main pulmonary trunk, right and left main pulmonary arteries are dil ated, suggesting a component of pulmonary hypertension. Lungs/Pleura: Posterior dependent subsegmental atelectasis is noted. No focal airspace consolidation. No pneumothorax. Airway: Large airways are patent. Heart: Heart is mildly enlarged for size with coronary artery atherosclerosis.. No pericardial effusi on. Vasculature: Mild atherosclerotic calcifications are present throughout the aorta and its branches. Mediastinum: No gross evidence of adenopathy. Musculoskeletal: Focal sclerosis at the upper sternal body (series 403, image 87) with some callus fo rmation and remote appearing nondisplaced fracture. Degenerative changes of the visualized thoracic s pine. No acute osseous abnormalities Soft Tissues: Unremarkable. Lower neck: No significant findings. Upper Abdomen: Small hiatal hernia.. IMPRESSION: 1. No evidence of pulmonary embolism. 2. Non-displaced, remote appearing sternal body fracture with signs of healing. Correlate with patien t history for remote trauma. 3. Cardiomegaly. 4.Enlarged pulmonary trunk, likely sequelae pulmonary hypertension
[2021-12-23] MEDS ORDERED: cefTRIAXone IN SWFI 1,000 MG/10 ML SYRINGE IVP STA (20:05)
[2021-12-23 20:22] LABS: Appearance,Urine Cloudy (Clear); Bilirubin,Urine 1+ (Negative); Blood,Urine Negative (Negative); Color,Urine Yellow; Glucose,Urine (UA) Negative (Negative); Ketones,Urine Negative (Negative); Leukocyte Esterase,Urine Negative (Negative); Mucus,Urine Occasional /hpf; Nitrite,Urine Negative (Negative); Protein,Urine 1+ (Negative); RBC,Urine 5 /hpf (0-5); Specific Gravity,Urine 1.018 (1.001-1.035); Squamous Epithelial Cell,Urine 2 /hpf (0-4); WBC,Urine 19 /hpf (0-5)
--- NOTE | 2021-12-23 21:21 | US ---
EXAMINATION TYPE: US gallbladder DATE OF EXAM: 12/23/2021 COMPARISON: NONE CLINICAL HISTORY: Cholecystitis. TECHNIQUE: Multiple sonographic images of the right upper quadrant are obtained. FINDINGS: EXAM MEASUREMENTS: Liver Length: 15.6 cm Gallbladder Wall: 1.0 cm CBD: 1.2 cm Right Kidney: 10.1 x 4.4 x 4.8 cm [employer] NOTES: Pancreas: partially obscured by overlying bowel, appears heterogeneous Liver: wnl as seen Gallbladder: Thickened and edematous wall with intramural echogenic foci and layering biliary debris. Evidence for sonographic Roy's sign: no CBD: Dilated common bile duct measuring up to 12 mm in width. Shadowing echogenic focus is seen withi n the mid to distal common bile duct measuring 2.1 x 1.2 cm. No appreciable internal color flow. Right Kidney: Inferior pole obscured by overlying bowel gas, appears wnl as seen IMPRESSION: 1. Choledocholithiasis with a dilated common bile duct and acute inflammatory changes of the gallblad nickolas. 2. Gallbladder wall hyperechoic foci which are nonspecific and may represent focal adenomyomatosis, e cliff or developing microabscess.
[2021-12-23 22:04] VITALS: BP 113/56; PULSE 108; RESP 20; TEMP 98.4
== END 2021-12-23 22:51 | disposition other institution (70) ==
LOC: EC 14:53
DX: R07.89 Other chest pain (principal); R00.0 Tachycardia, unspecified; K80.51 Calculus of bile duct without cholangitis or cholecystitis with obstruction; R77.8 Other specified abnormalities of plasma proteins; K85.90 Acute pancreatitis without necrosis or infection, unspecified; J45.909 Unspecified asthma, uncomplicated; Z87.891 Personal history of nicotine dependence; Z79.899 Other long term (current) drug therapy
CPT/HCPCS: 99285; 96361 ×7; 96365; 36415; 85379; 83880; 80053; 84443; 83690; 83735; 84484; 85025; 85610; 85730; 81001; 87040; 87086; 87502; 87635; 71046; 76705; 71275; J0696; Q9967